=== PATIENT | male | born 1990 | race Caucasian/White ===

== ENCOUNTER 2023-11-05 19:08 | Emergency (ER) | payer SELFPAY ==
[2023-11-05 19:35] VITALS: BP 180/72
[2023-11-05] MEDS ORDERED: DEXAMETHASONE SOD. PHOSPHATE 10 MG/ML VIAL IM ONE (19:40)
[2023-11-05 19:46] VITALS: BP 143/84
[2023-11-05] MEDS ORDERED: PREDNISONE20 MG PO (19:47)
[2023-11-05 19:50] VITALS: BP 143/84
== END 2023-11-05 19:51 | disposition home or self-care (01) | DRG 607 ==
LOC: ED 19:08
DX: L25.9 Unspecified contact dermatitis, unspecified cause (principal)